=== PATIENT | female | born 1935 | race Caucasian/White ===

== ENCOUNTER 2024-05-31 15:17 | Emergency (ER) | payer MEDICARE, OTHER, SELFPAY ==
[2024-05-31 15:22] VITALS: BP 152/88
[2024-05-31 15:46] LABS: % Basophils 0.3 % (0-2); % Eosinophils 0.2 % (0-6); % Immature Granulocytes 0.3 % (0-0.5); % Lymphocytes 16.7 % (20.5-51.1); % Monocytes 7.9 % (1.7-9.3); % Neutrophils 74.6 % (42.2-75.2); Absolute Lymphocytes 1.5 10^3/uL (1.2-3.4); Absolute Monocytes 0.7 10^3/uL (0.1-0.6); Absolute Neutrophils 6.8 10^3/uL (1.4-6.5); Hematocrit 42.3 % (37.0-47.0); Mean Corp Hgb Conc. 33.1 g/dL (33.0-37.0); Mean Corpuscular Hgb 32.8 pg (27.0-31.0); Mean Corpuscular Volume 99.1 fL (81.0-99.0); Mean Platelet Volume 9.4 fL (7.4-10.4); Nucleated Red Blood Cells % 0 %; Platelet Count 231 10^3/uL (130-400); Red Blood Cell Count 4.27 10^6/uL (4.20-5.40); Red Cell Dist. Width 13.2 % (11.5-14.5); White Blood Cell Count 9.1 10^3/uL (4.8-10.8)
[2024-05-31 15:52] LABS: Erythrocyte Sed Rate 7 mm/hour (0-20)
[2024-05-31 15:59] LABS: ALT (SGPT) 16 U/L (0-35); AST (SGOT) 30 U/L (14-36); Albumin 4.6 g/dl (3.5-5.0); Alkaline Phosphatase 119 U/L (38-126); Blood Urea Nitrogen 17 mg/dl (7-17); Calcium 9.7 mg/dl (8.4-10.2); Carbon Dioxide 31 mmol/L (22-30); Chloride 100 mmol/L (98-107); Glucose 119 mg/dl (70-99); Potassium 4.6 mmol/L (3.5-5.1); Sodium 139 mmol/L (135-145); Total Bilirubin 1.3 mg/dl (0.2-1.3); Total Protein 7.1 g/dl (6.3-8.2); eGFR > 60.00
[2024-05-31 16:14] VITALS: BP 143/89
[2024-05-31 17:00] VITALS: BP 115/74
--- NOTE | 2024-05-31 18:53 | ED.GENMED ---
History of Present Illness
General
Chief Complaint: Eye Problems
Source: patient and family (Daughter at bedside)
Exam Limitations: none
Time Seen by Provider: 05/31/24 18:32
Nursing documentation reviewed up to this point in time: agreed with
History of Present Illness
History of Present Illness:
88-year-old female with history of A-fib on Eliquis, HTN presents after seeing her receiving room clerk earlier today who diagnosed homonymous hemianopia of left eye. Patient is asymptomatic states 'I did not even know there is anything wrong.' She
denies change in vision. She denies headache. She denies numbness or tingling or weakness.
Past History
Past History
ED Past Medical History: Arrthythmia (atrial fibrillation), CHF and Other (Migraines, osteoporosis, restless leg syndrome,)
ED Past Surgical History: Appendectomy, Cardiac (Ablation), Gynecological (D&C x2) and Tonsilectomy
Social History
Tobacco: Non-smoker
Alcohol: None
Drug: None
Personal:
Living: alone
Employment: Retired
Family History
Family History: Other (Dad with NM and stroke)
Review of Systems
Review of Systems
Allergies reviewed?: Yes
All Other Systems: ROS reviewed and negative except as documented in HPI and ROS
Constitutional: Denies fever or fatigue
EENT: Reports other (Denies change in vision)
Respiratory: Denies trouble breathing
Cardiac: Denies chest pain
ABD/GI: Denies abdominal pain or nausea
: Denies dysuria or difficulty voiding
Musculoskeletal: Reports no symptoms
Skin: Reports no symptoms
Neurological: Reports no symptoms; Denies headache
Phy Exam
Physical Exam
Physical Exam:
GENERAL: No acute distress. A&Ox3.
CONSTITUTIONAL: Afebrile.
EYES: clear, conjunctivae normal, EOMs intact, visual pelletier intact.
ENMT: moist mucus membranes, Pharynx nl
RESPIRATORY: Regular respirations, nonlabored, lungs clear.
CARDIOVASCULAR: Regular rate and rhythm, no murmurs, no rubs.
GI: Soft, nontender, normal BS
MUSCULOSKELETAL: Moves with ease. Well perfused.
SKIN: Warm, dry, pink
PSYCH: Normal mood and affect. Well kept, interactive and appropriate
NEUROLOGIC: Awake, alert and oriented. No focal neurological deficits
Course
Orders/Labs/Results
Orders:
Orders
05/31/24 15:27
CT Head & Neck Angio W/wo IV Urgent
Comment:
Reason For Exam: cva r/o
05/31/24 15:33
Complete Blood Count/With Diff Urgent
Comprehensive Metabolic Panel Urgent
Erythrocyte Sed Rate Urgent
Abnormal Lab Results
05/31/24
15:33
MCV 99.1 H fL
(81.0-99.0)
MCH 32.8 H pg
(27.0-31.0)
Absolute Neuts (auto) 6.8 H 10^3/uL
(1.4-6.5)
Absolute Monos (auto) 0.7 H 10^3/uL
(0.1-0.6)
Lymphocytes % 16.7 L %
(20.5-51.1)
Carbon Dioxide 31 H mmol/L
(22-30)
Glucose 119 H mg/dl
(70-99)
05/31/24 15:33
05/31/24 15:33
Vital Signs
Initial and Last Documented VS:
Initial Vital Signs
Temp Pulse Resp BP Pulse Ox
98.9 F 75 18 152/88 99
05/31/24 15:22 05/31/24 15:22 05/31/24 15:22 05/31/24 15:22 05/31/24 15:22
Last Documented Vital Signs
Temp Pulse Resp BP Pulse Ox
98.9 F 74 16 115/74 94
05/31/24 15:22 05/31/24 18:14 05/31/24 18:14 05/31/24 17:00 05/31/24 17:00
MDM/Problems Addressed
Differential Diagnosis Includes:
CVA,
MDM/Problems Addressed:
88-year-old female with history of A-fib on Eliquis, HTN presents after seeing her receiving room clerk earlier today who diagnosed homonymous hemianopia of left eye. Patient is asymptomatic states 'I did not even know there is anything wrong.' She
denies change in vision. She denies headache. She denies numbness or tingling or weakness.
Patient was told to come to the ER and has an order for CAT scan of brain with and without contrast.
Visual pelletier intact
CT radiology report reviewed: IMPRESSION: No acute intracranial pathology.
No acute vascular pathology. No focal stenosis. No M1 nor M2 occlusion. No carotid dissection
Mild atrophy.
Mild periventricular small vessel ischemic disease atrophy.
Multilevel degenerative disc disease as described above.
Less than grade 1 retrolisthesis of C3 on C4.
Irregular hypodense left thyroid lesion. Dedicated thyroid ultrasound recommended if not previously evaluated.
Consulted neurology Dr. Salazar
He read CT report, agrees pt can go home, no further intervention needed.
*Critical Care Note
Total Time (30-74mins, 75-104mins- exclusive of procedures): Not Applicable
ED Attending Note
-
Portions of this chart may have been created with voice recognition software.� Occasional wrong word or��sound alike� substitutions may have occurred due to the inherent limitations of voice recognition software.
Discharge Plan
Departure
Patient Disposition: Home (Routine Discharge)
Date of Disposition: 05/31/24
Time of Disposition: 19:04
Patient with high blood pressure during this ER visit?: No
Condition: Good
Discharge Problem:
Visual field defect of left eye
Prescriptions:
No Action
alprazolam 0.25 MG tablet
0.5 mg PO DAILYPRN PRN (Reason: anxiety)
Patient Comments:
can take whole tab if needed
vitamin B complex 1 TAB tablet
2 tab PO DAILY
coenzyme Q10 [Co Q-10] 100 MG capsule
100 mg PO DAILY
digestive enzymes 1 TAB.CHEW tablet,chewable
2 tab.chew PO MEALS
L.acidoph,paracasei,B.animalis 1 EACH capsule
1 ea PO DAILY
Magnesium 180mg
2 tab PO BID
acetaminophen [Tylenol Extra Strength] 500 MG tablet
500 mg PO Q4HPRN PRN (Reason: pain)
Patient Comments:
rapid release
acetaminophen [Tylenol 8 Hour] 650 MG tablet extended release
650 mg PO PRN PRN (Reason: pain)
warfarin [Jantoven] 2.5 MG tablet
2.5 mg PO HS Qty: 0 0RF
Rx Instructions:
Restart tonight, 10/06 at usual dose/time
doxycycline monohydrate 100 mg capsule
100 mg PO BID 7 Days Qty: 14 0RF
Referrals:
Shima Segura CRNP [Family Provider] -
Activity Restrictions/Additional Instructions:
As we discussed, your CAT scan shows nothing worrisome.
Interventions
Interventions:
*Risk Screen - Suicide Last Done: 05/31/24 15:22
*General Assessment Last Done: 05/31/24 15:22
*Neglect/Abuse Screening Last Done: 05/31/24 15:22
*ED COVID-19 Vaccine History Last Done: 05/31/24 16:15
*Nursing Disposition Last Done: 05/31/24 19:49
Discharge Date and Time
Discharge Date/Time: 05/31/24 19:49
Print Language: [place]
== END 2024-05-31 19:49 | disposition home or self-care (01) ==
LOC: EMR 15:17
PROVIDERS: Student in an Organized Health Care Education/Training Program; EMERGENCY PHYSICIAN Emergency Medicine; FAMILY PHYSICIAN Nurse Practitioner Family
DX: H53.40 Unspecified visual field defects (principal); I48.91 Unspecified atrial fibrillation; I10 Essential (primary) hypertension
CPT/HCPCS: 99285; 70496; 70498; 80053; 85025; 85652; Q9967